=== PATIENT | female | born 1985 | race Caucasian/White ===

== ENCOUNTER 2017-03-25 08:44 | Day surgery (SDC) | payer MEDICARE, OTHER ==
[~2017-03-25 08:44] MED LIST: RINGER'S SOLUTION,LACTATED 1,000 ML IV PRN; ceFAZolin SODIUM 1 GM in DEXTROSE 5 % IN WATER 100 ML IV PRN
--- NOTE | 2017-03-25 14:06 | OR ---
Operative Report - Dictated Report Narrative: Date: 03/25/2017 Preop dx: fibroadenoma of left breast Postop dx: same Procedure: Needle localized excisional left breast biopsy Surgeon: Raghav Rivas MD Asst surgeon: Benito Pappas, M3 Anesthesia: GET EBL: minimal Specimen: left breast mass Description: Following the smooth induction of general anesthesia the left breast was prepped and draped in a sterile fashion. The localizing wire enters medially at the 9:00 radius. A curvilinear incision was carried out about half way between the wire and the areolar border. Dissection was taken down to the wire which was then imbricated into the wound. This was followed to the mass. A silk transfixing suture was placed through the mass for traction. The mass was dissected away from surrounding tissue with electrocautery. Once liberated it was sent to pathology. No specimen radiogram was necessary. Hemostasis appeared adequate. The skin was approximated with interrupted subcuticular stitches of 4- 0 vicryl and sealed with dermabond. The patient tolerated the procedure well without apparent complications and was discharged from the OR in stable condition.
[2017-03-25] MEDS ORDERED: HYDROcodone/ACETAMINOPHEN 1 EACH TABLET PO PRN (14:21)
[2017-03-25 15:07] VITALS: BP 116/77
[2017-03-25] MEDS ORDERED: IBUPROFEN 800 MG TABLET PO SCH (17:00)
== END 2017-03-25 08:45 | disposition home or self-care (01) ==
LOC: AMB 08:44
PROVIDERS: ATTEND Specialist
PROC: 0HBU0ZX Excision of Left Breast, Open Approach, Diagnostic (ICD-10-PCS; principal; 2017-03-25 12:10)
DX: D24.2 Benign neoplasm of left breast (principal); J45.909 Unspecified asthma, uncomplicated; F41.9 Anxiety disorder, unspecified; F32.9 Major depressive disorder, single episode, unspecified; F17.200 Nicotine dependence, unspecified, uncomplicated; Z68.22 Body mass index [BMI] 22.0-22.9, adult
CPT/HCPCS: 19125; 76942; G0206